=== PATIENT | female | born 1965 | race Caucasian/White ===

== ENCOUNTER 2022-06-19 08:21 | Day surgery (SDC) | payer OTHER ==
[~2022-06-19] VITALS: Ht 162.6 cm; Wt 64.9 kg
[2022-06-19] MEDS ORDERED: diphenhydrAMINE 50 MG/ML VIAL ONE (09:50)
[2022-06-19] MEDS ORDERED: fentaNYL citrate 0.05 MG/ML VIAL ONE (09:50)
[2022-06-19] MEDS ORDERED: MIDAZOLAM 5 MG/5 ML VIAL ONE (09:51)
[2022-06-19] MEDS ORDERED: fentaNYL citrate 0.05 MG/ML VIAL IVP ONE (13:50)
[2022-06-19] MEDS ORDERED: diphenhydrAMINE 50 MG/ML VIAL IVP ONE (13:50)
[2022-06-19] MEDS ORDERED: MIDAZOLAM 2 MG/2 ML VIAL IVP ONE (13:50)
== END 2022-06-19 11:07 | disposition home or self-care (01) ==
LOC: MMU 08:21 → MOR 08:21
PROVIDERS: ATTEND Internal Medicine Gastroenterology
DX: R13.10 Dysphagia, unspecified (principal); K29.50 Unspecified chronic gastritis without bleeding; K21.9 Gastro-esophageal reflux disease without esophagitis; K44.9 Diaphragmatic hernia without obstruction or gangrene; Z88.6 Allergy status to analgesic agent; Z79.899 Other long term (current) drug therapy; Z90.89 Acquired absence of other organs; Z20.822 Contact with and (suspected) exposure to COVID-19
CPT/HCPCS: 43239; 87426; J1200; J2250; J3010; 88305; 88312; 88313; 88342